=== PATIENT | male | born 1945 ===

== ENCOUNTER 2017-12-05 10:48 | Emergency (ER) | payer OTHER ==
--- NOTE | 2017-12-05 11:03 | ED PDOC ---
Arrival/HPI - General Chief Complaint: Substance Abuse Time Seen by Provider: 12/05/17 10:58 Historian: Patient, EMS - History of Present Illness Narrative History of Present Illness (Text): 12/05/17 11:06 A 72 year old male, whose past medical history includes asthma and substance abuse, brought in by EMS into the emergency department for heroin overdose. Per EMS, patient was found on the sidewalk unconscious. Was given Narcan 2 mg in the field, resulting in the patient waking up. Patient admits to having intranasally inhaled 1 bag of heroin, and has been using heroin for years. Limited HPI and ROS due to AMS. Past Medical History - Provider Review Nursing Documentation Reviewed: Yes - Infectious Disease Hx of Infectious Diseases: None - Cardiac Hx Cardiac Disorders: No - Pulmonary Hx Asthma: Yes - Neurological Hx Neurological Disorder: No - Psychiatric Hx Substance Use: Yes - Anesthesia Hx Anesthesia: No Family/Social History - Physician Review Nursing Documentation Reviewed: Yes Family/Social History: No Known Family HX Smoking Status: Current Some Days Smoker Hx Alcohol Use: No Hx Substance Use: Yes Substance used: heroin Allergies/Home Meds Allergies/Adverse Reactions: Allergies No Known Allergies Allergy (Verified 12/05/17 11:01) Home Medications: Home Meds Medication Instructions Recorded Confirmed No Known Home Med 12/05/17 12/05/17 Review of Systems - Review of Systems Systems not reviewed;Unavailable: Altered Mental Status Physical Exam - Physical Exam Narrative Physical Exam (Text): Constitutional: No acute distress. Patient appears drowsy due to AMS. Head: Normocephalic. Atraumatic. Eyes: Constricted pupils. ENT: Moist mucous membranes. Neck: Supple. Cardiovascular: Regular rate. Chest: No tenderness. Respiratory: Clear to auscultation bilaterally. GI: Soft. Nontender. Nondistended. Back: No CVA tenderness. Musculoskeletal: No tenderness or swelling of extremities. Skin: No rash. Neurologic: Alert, no focal deficit. Vital Signs Temp Pulse Resp BP Pulse Ox 12/05/17 16:52 97.2 F L 56 L 18 128/65 99 12/05/17 14:29 60 22 115/68 98 12/05/17 11:35 69 18 136/89 97 12/05/17 11:02 97.4 F L 94 H 16 151/83 H 95 Finger Stick Blood Glucose: 157 Medical Decision Making ED Course and Treatment: 12/05/17 11:08 Impression: 72 year old male brought in for possible overdose, to which patient admits to using 1 bag of heroin. Plan: -- Reassess and disposition Progress Notes: Patient observed in emergency department for over 7 hours on monitor. No episodes of apnea, awake, will discharge. - Medication Orders Current Medication Orders: Discontinued Medications Ondansetron HCl (Zofran Inj) 8 mg IVP STAT STA Stop: 12/05/17 11:10 Last Admin: 12/05/17 11:33 Dose: 8 mg IVP Administration Document 12/05/17 11:33 SRE (Rec: 12/05/17 11:33 SRE [id number]) Charges for Administration # of IVP Administrations 1 - Scribe Statement The provider has reviewed the documentation as recorded by the Melissa Cruz Provider Scribe Attestation: All medical record entries made by the Scribe were at my direction and personally dictated by me. I have reviewed the chart and agree that the record accurately reflects my personal performance of the history, physical exam, medical decision making, and the department course for this patient. I have also personally directed, reviewed, and agree with the discharge instructions and disposition. Disposition/Present on Arrival - Present on Arrival Any Indicators Present on Arrival: No History of DVT/PE: No History of Uncontrolled Diabetes: No Urinary Catheter: No History of Decub. Ulcer: No History Surgical Site Infection Following: None - Disposition Have Diagnosis and Disposition been Completed?: Yes Diagnosis: Heroin overdose Disposition: HOME/ ROUTINE Disposition Time: 17:56 Patient Plan: Discharge Condition: STABLE Discharge Instructions (ExitCare): Narcotic Overdose Forms: [employer] (Bulgarian)
[2017-12-05 18:18] VITALS: BP 116/65; PULSE 66; RESP 20; TEMP 97.6
[2017-12-05 18:20] VITALS: O2SAT 96
== END 2017-12-05 18:21 | disposition home or self-care (01) ==
LOC: ED 10:48
DX: T40.1X1A Poisoning by heroin, accidental (unintentional), initial encounter (principal); Y92.480 Sidewalk as the place of occurrence of the external cause
CPT/HCPCS: 96374; 99285; J2405